=== PATIENT | female | born 1985 | race Caucasian/White ===

== ENCOUNTER 2017-07-08 19:57 | Emergency (ER) | payer OTHER ==
[~2017-07-08] VITALS: Ht 167.6 cm; Wt 97.5 kg
[2017-07-08 20:35] VITALS: BP 148/90
--- NOTE | 2017-07-08 23:46 | NUR ---
TO ER BED 3
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
--- NOTE | 2017-07-08 23:51 | NUR ---
Patient being evaluated by physician at bedside.
[2017-07-08] MEDS ORDERED: ONDANSETRON 4 MG ODT PO ONE (23:55)
--- NOTE | 2017-07-09 01:36 | NUR ---
Patient appears to be resting comfortably in bed. Vital Signs within normal limits. Respirations even and unlabored.
[2017-07-09 01:50] VITALS: BP 140/89
== END 2017-07-09 01:50 | disposition home or self-care (01) ==
LOC: MED 20:25
DX: S16.1XXA Strain of muscle, fascia and tendon at neck level, initial encounter (principal); V49.9XXA Car occupant (driver) (passenger) injured in unspecified traffic accident, initial encounter; Y93.89 Activity, other specified; Y92.89 Other specified places as the place of occurrence of the external cause; Y99.8 Other external cause status
CPT/HCPCS: 70450; 72125; 81002; 81025; 99284; S0119